=== PATIENT | female | born 1940 | race Caucasian/White ===

== ENCOUNTER → 2018-04-11 | Outpatient (CLI) | payer MEDICARE, BC ==
[~2018-04-11] MED LIST: ADULT LOW DOSE81 MG PO; BENAZEPRIL HCL20 MG PO; CALCIUM +D & M1 EACH PO; COLACE100 MG PO; HYDROCHLOROTH12.5 MG PO; MECLIZINE HCL25 M1 PO; PROTONIX40 M2 PO; SIMVASTATIN40 MG PO; ZOFRAN ODT4 MG PO
== END ==
LOC: M.MRI 13:59
DX: G89.29 Other chronic pain (principal); M48.062 Spinal stenosis, lumbar region with neurogenic claudication; M47.897 Other spondylosis, lumbosacral region; M54.42 Lumbago with sciatica, left side; M54.41 Lumbago with sciatica, right side; M41.86 Other forms of scoliosis, lumbar region; N28.1 Cyst of kidney, acquired

== ENCOUNTER → 2018-04-22 | Outpatient (CLI) | payer MEDICARE, BC | LOC: M.RAD 09:37 | DX: Z12.31 Encounter for screening mammogram for malignant neoplasm of breast (principal) ==

== ENCOUNTER 2020-08-29 14:22 | Emergency (ER) | payer MEDICARE, BC ==
[~2020-08-29] VITALS: Ht 149.9 cm; Wt 65.8 kg
[2020-08-29] MEDS ORDERED: CALCIUM500 MG PO (14:42)
[2020-08-29] MEDS ORDERED: VITAMIN D32400 UNIT/ PO (14:43)
[2020-08-29] MEDS ORDERED: LIPITOR10 MG PO (14:43)
[2020-08-29 17:00] LABS: ABSOLUTE BASOPHILS 0.1 thou/uL (0.0-0.2); ABSOLUTE EOSINOPHILS 0.1 thou/uL (0.0-0.7); ABSOLUTE LYMPHOCYTES 1.5 thou/uL (0.8-5.3); ABSOLUTE MONOCYTES 0.7 thou/uL (0.0-1.2); ABSOLUTE NEUTROPHILS 4.2 thou/uL (1.6-8.1); BASOPHILS 0.9 %; EOSINOPHILS 1.5 %; HEMATOCRIT 41.6 % (37.0-47.0); HEMOGLOBIN 13.9 gm/dL (12.0-15.0); LYMPHOCYTES 22.9 %; MCHC 33.3 g/dL (28.0-37.0); MCV 93.1 fL (80.0-100.0); MONOCYTES 10.2 %; MPV 7.7 fl. (7.2-11.1); NUCLEATED RBCS 0 /100WBC; PLATELET COUNT* 277 thou/uL (150-400); POLYS 64.5 %; RBC 4.47 mil/uL (4.20-5.00); RDW-CV 14.3 % (10.5-14.5); WBC 6.4 thou/uL (4.0-11.0)
[2020-08-29 17:07] LABS: BE 1.2 mmol/L (-2 to +3); PCO2 39.6 mmHg (35.0-45.0); PO2 76.8 mmHg (75.0-100.0); pH 7.427 (7.340-7.450)
[2020-08-29 17:09] LABS: CALCIUM 9.1 mg/dL (8.5-10.1); CREATININE 1.2 mg/dL (0.6-1.3); POTASSIUM 3.8 mmol/L (3.5-5.1)
[2020-08-29 17:11] LABS: APTT 24.1 Seconds (25.0-31.3); PROTIME 10.1 Seconds (9.20-11.50)
[2020-08-29 17:14] LABS: ALBUMIN 3.9 g/dL (3.4-5.0); TOTAL BILIRUBIN 0.4 mg/dL (<0.1-1.0); TOTAL PROTEIN 7.7 g/dL (6.4-8.2)
[2020-08-29 17:17] LABS: URINE BILIRUBIN NEGATIVE (Negative); URINE BLOOD TRACE (Negative); URINE CLARITY CLEAR; URINE COLOR YELLOW; URINE GLUCOSE-RANDOM NEGATIVE (Negative); URINE KETONES NEGATIVE (Negative); URINE LEUKOCYTES-REFLEX 1+ (Negative); URINE NITRITE-REFLEX NEGATIVE (Negative); URINE PROTEIN NEGATIVE (Negative); URINE SPECIFIC GRAVITY >= 1.030 (1.005-1.030); URINE UROBILINOGEN 0.2 E.U./dl (0.2-1.0)
[2020-08-29 17:28] LABS: BACTERIA-REFLEX 1-9 Few /HPF (None Seen); CASTS None Seen /LPF (None Seen); CRYSTALS None Seen /LPF (None Seen); SQUAMOUS 0-3 Few /LPF (0-3); URINE RBC 0-2 Rare /HPF (0-2); URINE WBC-REFLEX 0-5 Rare /HPF (0-5)
[2020-08-29 20:53] VITALS: BP 164/83
--- NOTE | 2020-08-30 15:47 | EKG ---
[place] [address] ELECTROCARDIOGRAM REPORT Name: MITZY MORROW Room: [facility]#: [id number] Admission: 08/29/20 Attend Phys: Discharge: 08/29/20 Date of : 36 Date of Service: 08/29/20 1556 Report #: [id number] THIS REPORT FOR: //name// [facility] ED Test Date: 2020-08-29 Test Time: 15:56:38 Pat Name: MITZY MORROW Department: Room: Gender: F Copy Coordinator: [facility] : 1940 Requested By: Mariel Gustafson Order Number: [id number] MD: Estiven Harmon Measurements Intervals [place] Rate: 93 P: 46 GA: 196 QRS: -48 QRSD: 102 T: 45 QT: 374 QTc: 466 Interpretive Statements Sinus rhythm Left anterior fascicular block Abnormal R-wave progression, early transition Left ventricular hypertrophy Compared to ECG 08/03/2013 08:38:55 Left anterior fascicular block persists Left ventricular hypertrophy now present Electronically Signed On 08-30-2020 15:47:15 CDT by Estiven Harmon [email or web address] <ELECTRONICALLY SIGNED> By: Estiven Harmon MD, FACC 08/30/20 1547 1556 1556 Estiven Harmon MD, FACC /EPI
== END 2020-08-29 20:53 | disposition home or self-care (01) ==
LOC: M.ERS 14:22
PROVIDERS: Personal Emergency Response Attendant
DX: R06.02 Shortness of breath (principal); Z20.828 Contact with and (suspected) exposure to other viral communicable diseases; M79.601 Pain in right arm; I10 Essential (primary) hypertension; E78.00 Pure hypercholesterolemia, unspecified; Z79.899 Other long term (current) drug therapy; Z79.82 Long term (current) use of aspirin

== ENCOUNTER → 2020-09-19 | Outpatient (CLI) | payer MEDICARE, BC ==
[~2020-09-19] MED LIST changes: +CALCIUM500 MG PO; +LIPITOR10 MG PO; +VITAMIN D32400 UNIT/ PO
--- NOTE | 2020-09-19 12:46 | 2DMMODE ---
[place] [address] 2 D/M-MODE ECHOCARDIOGRAM Name: MITZY MORROW Room: [facility]#: [id number] Admission: 09/19/20 Attend Phys: Naresh Reagan, Discharge: Date of : 36 Date of Service: 09/19/20 1246 Report #: [id number] THIS REPORT FOR: cc: Wally Alexander MD, Dean L. MD Blick,Anthony Campos MD [facility] ~ APPROVED REPORT Study performed: 09/19/2020 10:55:29 EXAM: Comprehensive 2D, Doppler, and color-flow Echocardiogram Patient Location: Out-Patient BSA: 1.63 HR: 96 bpm BP: 191/89 mmHg Other Information Study Quality: Fair Indications Chest Pain 2D Dimensions IVSd: 11.15 (7-11mm) LVOT Diam: 19.78 (18-24mm) LVDd: 39.18 mm PWd: 9.20 (7-11mm) Ascending Ao: 24.75 (22-36mm) LVDs: 28.46 (25-40mm) Aortic Root: 27.47 mm Volumes Left Atrial Volume (Systole) LA ESV Index: 14.80 mL/m2 Aortic Valve AoV Peak Cong.: 1.08 m/s AO Peak Gr.: 4.63 mmHg LVOT Max P.78 mmHg AO Mean Gr.: 2.80 mmHg LVOT Mean P.94 mmHg LVOT Max V: 0.97 m/s AO V2 VTI: 28.15 cm LVOT Mean V: 0.64 m/s TAYLOR (VTI): 2.54 cm2 LVOT V1 VTI: 23.28 cm Mitral Valve E/A Ratio: 0.48 [place] [address] 2 D/M-MODE ECHOCARDIOGRAM Name: MITZY MORROW Room: [facility]#: [id number] Admission: 09/19/20 Attend Phys: Narseh Reagan, Discharge: Date of : 36 Date of Service: 09/19/20 1246 Report #: [id number] MV Decel. Time: 219.63 ms MV E Max Cong.: 0.47 m/s MV PHT: 63.69 ms MVA (PHT): 3.45 cm2 TDI E/Lateral E': 5.22 E/Medial E': 5.88 Medial E' Cong.: 0.08 m/s Lateral E' Cong.: 0.09 m/s Pulmonary Valve PV Peak Cong.: 0.95 m/s PV Peak Gr.: 3.61 mmHg Tricuspid Valve RAP Estimate: 5.00 mmHg TR Peak Gr.: 20.90 mmHg RVSP: 25.90 mmHg PA Pressure: 25.90 mmHg Left Ventricle The left ventricle is normal size. There is normal LV segmental wall motion. There is normal left ventricular wall thickness. Left ventricular systolic function is normal. The left ventricular ejection fraction is within the normal range. LVEF is 55-60%. Grade I - abnormal relaxation pattern. Right Ventricle The right ventricle is normal size. The right ventricular systolic function is normal. Atria The left atrium size is normal. The right atrium size is normal. Aortic Valve The aortic valve is normal in structure. trace aortic regurgitation is present. There is no aortic valvular stenosis. Mitral Valve The mitral valve is normal in structure. There is no mitral valve regurgitation noted. No evidence of mitral valve stenosis. Tricuspid Valve The tricuspid valve is normal in structure. Mild tricuspid regurgitation[place] [address] 2 D/M-MODE ECHOCARDIOGRAM Name: MITZY MORROW Room: [facility]#: [id number] Admission: 09/19/20 Attend Phys: Naresh Reagan, Discharge: Date of : 36 Date of Service: 09/19/20 1246 Report #: [id number] Pulmonic valve is not well visualized. There is no pulmonic valvular regurgitation. Great Vessels The aortic root is normal in size. IVC is normal in size and collapses >50% with inspiration. Pericardium There is no pericardial effusion. <Conclusion> Left ventricular systolic function is normal. The left ventricular ejection fraction is within the normal range. <ELECTRONICALLY SIGNED> By: Anthony Hubbard MD, FACC 09/19/20 1246 1246 1246 Anthony Hubbard MD, FACC /INF
--- NOTE | 2020-09-20 12:14 | CARDNUC ---
[place] [address] CARDIAC NUCLEAR IMAGING REPORT Name: MITZY MORROW Room: [facility]#: [id number] Admission: 09/19/20 Attend Phys: Naresh Reagan, Discharge: Date of : 36 Date of Service: 09/20/20 1213 Report #: [id number] THIS REPORT FOR: cc: Wally Alexander MD, Dean L. MD [place],Naresh Johnson MD [facility] ~ APPROVED REPORT Study performed: 09/19/2020 09:00:00 Indication: Chest pain radiate to right arm, dyspnea, tachycardia, LAFB. Patient Location: Out-Patient Stress Tech: Natty El Stress Nurse: Susana Murillo RN Ht: 4 ft 11 in Wt: 150 lbs BSA: 1.63 m2 BMI: 30.29 Medical History Medical History: Angina, Dyspnea, Tachycardia, LAFB, HTN, HLD. Medications: ASA 81 Mg, Atorvastatin, Benazepril, Catapress, HCTZ. Allergies: Iodine. Cardiac Risk Factors: Age, HTN, Hyperlipidemia, SOB, Tachycardia, LAFB. Previous Cardiac Procedures: None Pretest Chest Pain Characteristics: No chest pain Exercise History: Indeterminate Physical Disabilities: Unstable/unsteady gait. Meds Held (24 hrs): None Resting Data Rest SPECT myocardial perfusion imaging was performed in supine position 30 minutes following the intravenous injection of 9.2 mCi of Tc-99m Sestamibi. Time of rest injection: 09:20 The images were gated to evaluate regional wall motion and calculate left ventricular ejection fraction. Administration Route: IV Administration Site: Right [place] [address] CARDIAC NUCLEAR IMAGING REPORT Name: MITZY MORROW Room: [facility]#: [id number] Admission: 09/19/20 Attend Phys: Naresh Reagan, Discharge: Date of : 36 Date of Service: 09/20/20 1213 Report #: [id number] Pharmacologic stress test was performed by injecting Regadenoson 0.4 mg IV push over 10-15 seconds immediately followed by the intravenous injection of 30.4 mCi of Tc-99m Sestamibi. Time of stress injection: 11:00 Administration Route: IV Administration Site: Right Hand Heart Rate at time of stress injection: 138 bpm. Gated Stress SPECT was performed 45 minutes after stress injection. The images were gated to evaluate regional wall motion and calculate left ventricular ejection fraction. Prone imaging was performed. Stress Test Details Stress Test: Pharmacologic stress was paired with low level exercise. Reason for pharmacologic stress test: Unstable/unsteady gait.. HR Max Heart Rate (APMHR): 138 bpm Resting HR: 96 bpm Target HR (85% APMHR): 117 bpm Max HR Achieved: 146 bpm % of APMHR: 105 Recovery HR: 109 bpm BP Resting BP: 191/89 mmHg Max BP: 200/81 mmHg Recovery BP: 178/90 mmHg ECG Resting ECG: Sinus Rhythm Stress ECG: Sinus Tachycardia ST Change: None Arrhythmia: None Recovery ECG: Sinus Rhythm Recovery ST Change: None Recovery Arrhythmia: None Clinical Reason for Termination: Completed protocol Stress Symptoms: Dyspnea, Dizziness. Exercise duration: 4 min 00 sec Exercise capacity: 2.30 METs The patient tolerated walking Lexiscan protocol [place] [address] CARDIAC NUCLEAR IMAGING REPORT Name: MITZY MORROW Room: [facility]#: [id number] Admission: 09/19/20 Attend Phys: Naresh Reagan, Discharge: Date of : 36 Date of Service: 09/20/20 1213 Report #: [id number] Nurse Comments An 80 year old female presented for a walking Lexiscan r/t radiating chest pain, dyspnea, tachycardia, LAFB. Test well tolerated. Recovery unremarkable. Patient was stable with some continued tachycardia, asymptomatic. Patient was escorted to Echo then to Nuclear Medicine for imaging. Patient stated she felt good at that time. Stress ECG Conclusion The baseline twelve-lead EKG shows sinus rhythm without significant ST segment or T wave abnormality. EKGs obtained during and post walking Lexiscan protocol show sinus rhythm and sinus tachycardia without any significant ST segment changes when compared to baseline. There were no stress-induced arrhythmias. Study Quality Study: Good Artifact: No artifact Study Data At rest, the left ventricular ejection fraction was 72%.. Post stress, the left ventricular ejection was 73%.. TID = 1.03. Perfusion Perfusion images obtained at rest and post walking Lexiscan protocol show uniform uptake of the radioisotope throughout the myocardium. There were no defects to suggest infarct or ischemia. Wall Motion Normal left ventricular wall motion. Nuclear Conclusion ECG Findings: negative for ischemia Clinical Findings: negative for ischemia Nuclear Findings: negative for ischemia Exercise Capacity: not assessed Left Ventricular Function: normal Risk Study: low Perfusion images show no defect to suggest infarct or ischemia. Left ventricular systolic function is normal on gated studies. This is a low risk study. <Conclusion> The baseline twelve-lead EKG shows sinus rhythm without significant ST segment or T wave abnormality. EKGs obtained during and post walking Lexiscan protocol show sinus [place] [address] CARDIAC NUCLEAR IMAGING REPORT Name: MITZY MORROW ABENA Room: [facility]#: [id number] Admission: 09/19/20 Attend Phys: Naresh Reagan, Discharge: Date of : 36 Date of Service: 09/20/20 1213 Report #: [id number] without any significant ST segment changes when compared to baseline. There were no stress-induced arrhythmias. <ELECTRONICALLY SIGNED> By: Naresh Reagan MD, FACC 09/20/20 121 12 12 Naresh Reagan MD, FACC /INF
== END ==
LOC: M.NUC 09-12 12:18
PROVIDERS: ATTEND Internal Medicine Cardiovascular Disease
DX: I07.1 Rheumatic tricuspid insufficiency (principal); I12.9 Hypertensive chronic kidney disease with stage 1 through stage 4 chronic kidney disease, or unspecified chronic kidney disease; N18.30 Chronic kidney disease, stage 3 unspecified

== ENCOUNTER → 2020-10-05 | Outpatient (CLI) | payer MEDICARE, BC | LOC: M.RAD 11:10 | PROVIDERS: ATTEND Nurse Practitioner | DX: Z12.31 Encounter for screening mammogram for malignant neoplasm of breast (principal); I10 Essential (primary) hypertension ==

== ENCOUNTER → 2021-11-29 | Outpatient (CLI) | payer MEDICARE, BC | LOC: M.RAD 12:15 | PROVIDERS: ATTEND Registered Nurse Diabetes Educator | DX: Z12.31 Encounter for screening mammogram for malignant neoplasm of breast (principal) ==